=== PATIENT | female | born 1995 | race Caucasian/White ===

== ENCOUNTER → 2017-10-02 12:34 | Outpatient (CLI) | payer OTHER, MEDICAID, SELFPAY ==
[2017-10-02 15:03] LABS: Add Manual Diff / Slide Review NO; Basophils Percent Auto 0.2 % (0-2); Eosinophils Percent Auto 0.3 % (2-4); Hematocrit 39.4 % (36-46); Hemoglobin 13.6 g/dL (12.0-16.0); Lymphocytes Percent Auto 20.6 % (25-40); Mean Corpuscular HGB Conc 34.5 % (30-36); Mean Corpuscular Hemoglobin 30.1 PG (26-34); Mean Corpuscular Volume 87.4 fL (80-100); Monocytes Percent Auto 4.3 % (3-14); Neutrophils Absolute Auto 9400 /uL (3000-5900); Neutrophils Percent Auto 74.6 % (50-75); Platelet Count 271 X10^3/uL (150-400); Red Blood Cell Count 4.51 X10^6/uL (4.0-5.2); Red Cell Distribution Width 14.2 % (11.6-14.8); White Blood Cell Count 12.5 X10^3/uL (4.5-11.0)
[2017-10-02 16:29] LABS: Hepatitis B Surface Antigen NEGATIVE s/c (NEGATIVE); Rubella Antibody IgG 34.1 IU/mL (>15)
[2017-10-02 18:00] LABS: HIV 1 and 2 Antibody NEGATIVE (NEGATIVE); Hep C Virus Ab w/Reflex Quant NEGATIVE s/c (NEGATIVE)
[2017-10-04 14:20] LABS: HSV 2 IGG AB < 0.90 index (< 0.90)
[2017-10-04 14:25] LABS: Varicella IgG Antibody < 135.00 Index (< 135.00)
[2017-10-07 15:18] LABS: Rapid Plasma Reagin NON-REACTIVE
== END ==
PROVIDERS: Visit Provider Family Medicine
DX: Z34.90 Encounter for supervision of normal pregnancy, unspecified, unspecified trimester (principal); Z3A.19 19 weeks gestation of pregnancy
CPT/HCPCS: 36415; 80055; 86695; 86696; 86703; 86787; 86803; 86850; 86900; 86901

== ENCOUNTER → 2017-10-07 12:26 | Outpatient (CLI) | payer OTHER, MEDICAID, SELFPAY ==
--- NOTE | 2017-10-07 12:28 | DI.US.S_ITS ---
PROCEDURE: US OB >= 14 WEEKS FETUS INDICATIONS: >14 WEEKS GESTATION OUTSIDE/PRIOR DATING DATA: Last menstrual period (LMP): 05/20/17. LMP-based estimated date of delivery (TEDDY): 02/24/18. First dating scan (date and location): 10/07/17. Estimated date of delivery (TEDDY) from first dating scan: 02/27/18. TECHNIQUE: Real-time scanning was performed of the fetus, with image documentation and biometric measurements. Endovaginal scanning: None COMPARISON: None. FINDINGS: General: A single living intrauterine gestation is present. Presentation: Breech. Placenta: Placental position is posterior, without previa. Amniotic fluid index: 13.4 cm cm, normal range is 5-24 cm. heart rate: 152 beats per minute. Maternal cervical canal: 5.5 cm long. biometrics: Biparietal diameter: 19 weeks 2 days Head circumference: 19 weeks 2 days Abdominal circumference: 20 weeks 2 days Femur length: 19 weeks 4 days Estimated gestational age from initial scan: not applicable. Composite gestational age from present scan: 19 weeks 4 days Estimated weight and percentile: 370 g; 37 percentile Measurement variability for biometric dating: +/- 7 days from 14 weeks to 15 weeks 6 days gestation, +/- 10 days from 16 weeks to 21 weeks 6 days gestation, +/- 2 weeks from 22 weeks to 27 weeks 6 days gestation, +/- 3 weeks for 28 weeks gestation or later. weight reference: 4500 g or EFW >90/95% is considered macrosomia or large for gestational age. EFW <10% is small for gestational age. EFW 5% or less is considered intra-uterine growth restriction. Anatomic survey: Neuro: Ventricles are non-dilated at less than 10 mm. Cisterna magna is normal at 3-11 mm. Cerebellum is normal in size and morphology. Nuchal skin fold: Normal at less than 6 mm between 14-21 weeks gestational age. Face: Nose and lips, facial profile are normal. Spine: No evidence for spina bifida. Heart: 4-chambered heart is present, with normal ventricular outflow tracts. Diaphragm: Diaphragm is intact. Stomach: Left-sided stomach is present. Kidneys: No hydronephrosis. Normal is less than 5 mm in 2nd trimester, less than 7 mm in 3rd trimester. Cord: 3-vessel cord has orthotopic insertion. Bladder: Normal in size. Extremities: All 4 extremities identified. IMPRESSION: 1. Single living intrauterine at 19 weeks 4 days is compatible with the provided clinical dates. 2. Normal anatomic survey. Dictated by: Yasmany MARLEY Interpreted: Fawad Scott MD on 10/07/2017 at 15:57 Approved by: Fawad Scott M.D. on 10/07/2017 at 17:23
== END ==
PROVIDERS: Visit Provider Family Medicine
DX: Z34.92 Encounter for supervision of normal pregnancy, unspecified, second trimester (principal); Z3A.19 19 weeks gestation of pregnancy
CPT/HCPCS: 76811

== ENCOUNTER → 2017-12-02 10:58 | Outpatient (CLI) | payer OTHER, MEDICAID, SELFPAY ==
[2017-12-02 12:24] LABS: Hematocrit 38.9 % (36-46); Hemoglobin 13.3 g/dL (12.0-16.0)
[2017-12-02 13:51] LABS: GTT (PREG) 1 Hour PP 50gm Dose 59 mg/dL (76-139)
== END ==
PROVIDERS: Visit Provider Family Medicine
DX: Z3A.28 28 weeks gestation of pregnancy (principal)
CPT/HCPCS: 36415; 82950; 85014; 85018

== ENCOUNTER → 2018-01-27 11:16 | Outpatient (CLI) | payer OTHER, MEDICAID, SELFPAY ==
[2018-01-28 08:41] LABS: Strep Grp B PCR POS for Grp B Strep
== END ==
PROVIDERS: PCP Family Medicine; Visit Provider Family Medicine
DX: Z34.83 Encounter for supervision of other normal pregnancy, third trimester (principal); Z3A.35 35 weeks gestation of pregnancy
CPT/HCPCS: 87653

== ENCOUNTER 2018-03-03 17:45 | Inpatient (IN) | payer OTHER, MEDICAID, SELFPAY ==
[2018-03-03 20:30] VITALS: BP 126/71
[2018-03-03 20:56] LABS: Add Manual Diff / Slide Review NO; Basophils Percent Auto 0.6 % (0-2); Eosinophils Percent Auto 0.7 % (2-4); Lymphocytes Percent Auto 26.3 % (25-40); Mean Corpuscular HGB Conc 34.1 % (30-36); Mean Corpuscular Hemoglobin 30.2 PG (26-34); Mean Corpuscular Volume 88.7 fL (80-100); Monocytes Percent Auto 8.8 % (3-14); Neutrophils Absolute Auto 7300 /uL (3000-5900); Neutrophils Percent Auto 63.6 % (50-75); Platelet Count 239 X10^3/uL (150-400); Red Blood Cell Count 4.62 X10^6/uL (4.0-5.2); Red Cell Distribution Width 13.9 % (11.6-14.8); White Blood Cell Count 11.6 X10^3/uL (4.5-11.0)
[2018-03-04] MEDS: LACTATED RINGERS 1,000 ML 100 ML IV (05:51)
[2018-03-04] MEDS: OXYTOCIN PREMIX 30 UNIT/500 ML PLAST..BAG IV (06:00)
[2018-03-04] MEDS: PENICILLIN G POTASSIUM 5,000,000 UNIT in DEXTROSE 5% IN WATER 250 ML IV (07:40)
--- NOTE | 2018-03-04 08:08 | PM.OBHP.1 ---
OB HPI Date/Time Date of admission: 03/03/18 Date Patient Seen: 03/04/18 Time Patient Seen: 07:30 History of Present Condition Chief complaint: : 2 Para: 1 Estimated Date of Delivery: 02/24/18 Estimated Gestational Age (weeks): 41w1d Narrative: Rani Montenegro is a 22 year old female, . She came in for postdates induction with cervical ripening last night however was found to be ella on her own and 4.5 cm. Indications Indication for induction OB: post dates History of Present care: good care, initiated at week # (19), number of visits (9) and pounds weight gain (54) Dating criteria: LMP confirmed by 2nd trimester US Ultrasounds: normal mid trimester US Obstetrical complications: none Medical complications: none Preadmission Labs Blood type: AB (+) positive -: Antibody screen: negative, GBS status: positive, HBsAG: negative, HIV: negative, HSV 1: positive, HSV 2: negative and RPR/VDLR: negative -: Chlamydia screen: not detected and Gonorrhea screen: not detected -: Rubella: immune and Varicella: not immune HCT: 39.4 HCAB: negative PAP: Normal 1 hr GTT: 59 Prior (ies) History: 2016 at 41 weeks, 8 lbs 4 oz male, epidural Evaluation Evaluation Baseline heart rate: 130 Variability: Moderate (11-25) monitor accelerations: Absent monitor decelerations: Variable Contraction Frequency (minutes): 3 Uterine Contraction Intensity: Moderate Category of Tracing: II Cervical dilation (cm): 5 Cervical effacement (%): 80 station: -2 Laboratory results: Laboratory Tests 03/03/18 03/03/18 20:50 20:50 WBC 11.6 H RBC 4.62 Hgb 14.0 Hct 41.0 MCV 88.7 MCH 30.2 MCHC 34.1 RDW 13.9 Plt Count 239 Neut % (Auto) 63.6 Lymph % (Auto) 26.3 [place] % (Auto) 8.8 Eos % (Auto) 0.7 L Baso % (Auto) 0.6 Neut # (Auto) 7300 H Blood Type AB Positive Antibody Screen Negative PFSH Surgical History S/P wisdom tooth extraction (Acute) Social History marital status: unmarried,living together Smoking Status: Never smoker alcohol intake: former (rare) substance use type: does not use Meds Home Medications Medication Instructions Recorded Confirmed Type VIT#96/FERROUS FUM/FA #0 11/16/15 History ( Vitamin) Allergies Allergy/AdvReac Type Severity Reaction Status Date / Time No Known Drug Allergies Allergy Unknown Unverified 03/03/18 20:33 [NO KNOWN DRUG ALLERGIES] Review of Systems Review of Systems All systems reviewed & are unremarkable except as noted in HPI and below Exam Const General: cooperative and healthy appearing HENMT Head: normal to inspection Ears: hearing grossly normal bilaterally Nose: external nose normal Face and sinus: normal facial exam Mouth: oral mucosae normal Teeth and gingiva: dentition normal Eyes General: appearance normal, both eyes and all related structures Neck Neck: normal visual inspection Resp Effort & Inspection: normal respiratory effort Auscultation: clear to auscultation bilaterally Cardio Rate: regular rate Rhythm: regular rhythm Heart Sounds: no murmurs External Female Exam: external appearance normal Manual OB Exam: dilated Presentation: vertex Neuro General: alert, awake and oriented x3 Extrem General: normal to inspection and no pedal edema Objective Labs Result Diagrams: 03/03/18 20:50 Labs: Laboratory Results - last 24 hr 03/03/18 03/03/18 20:50 20:50 WBC 11.6 H RBC 4.62 Hgb 14.0 Hct 41.0 MCV 88.7 MCH 30.2 MCHC 34.1 RDW 13.9 Plt Count 239 Neut % (Auto) 63.6 Lymph % (Auto) 26.3 [place] % (Auto) 8.8 Eos % (Auto) 0.7 L Baso % (Auto) 0.6 Neut # (Auto) 7300 H Blood Type AB Positive Antibody Screen Negative Assessment and Plan (1) 41 weeks gestation of : Current visit: Yes Status: Acute 22 year old at 41+1 weeks, GBS positive. Pitocin started this morning. Plan - Continue pitocin, AROM after adequate antibiotics - GBS prophylaxis - Expectant management, anticipate (2) Positive GBS test: Current visit: Yes Status: Acute
[2018-03-04] MEDS: PENICILLIN G POTASSIUM 3,000,000 UNIT/50 ML FROZ.PIGGY 100 UNIT IV (11:35)
--- NOTE | 2018-03-04 14:53 | PM.OBPRVD ---
Delivery date: 03/04/18 Induction method: per pitocin protocol Delivery augmentation: rupture of membranes Delivery monitor: external FHT Route of delivery: Laceration description: None Estimated blood loss (mL): 100 Anesthesia type: None Narrative: VAGINAL DELIVERY NOTE BRIEF HISTORY: Patient is a 22-year-old G2-now-P2 status post spontaneous vaginal delivery at 41+1 weeks gestation on 03/04/18. TEDDY: 02/24/18 Hospital problems: 41 weeks of GBS positive STAGE I: Labor Indications for Induction: Postdates Labor onset 03/04/18 at 6:00 a.m.. Induction agents: Pitocin Augmentation: AROM with clear fluid at 12:37 p.m. Complete: 14:30 Stage I duration: 8 hours and 30 minutes Analgesia for labor: None. Comments: heart tones were category 2 throughout due to intermittent variable decelerations. STAGE II: Delivery The second stage of labor lasted 6 minutes. Spontaneous vaginal delivery occurred at 2:36 p.m. on 03/04/18. Infant was vertex and CARLO with a tight nuchal cord which was reduced. Apgars were 9 and 9. was placed on mother's chest. Cord was clamped and cut after 1 minute delay. STAGE III: Placenta/Cord The third stage of labor lasted 4 minutes. Placenta delivered after active management and appeared intact with a three-vessel cord. There were no perineal or vaginal lacerations. Hemostasis achieved. Fundus was firm at umbilicus. Pitocin bolus given after delivery of placenta. EBL: 100 mL. Needle and sponge counts were correct. The vagina was inspected and no items were left in situ.
[2018-03-04] MEDS: LANOLIN OINT 7 GM 1 APPLIC TOP (19:26)
[2018-03-04] MEDS: IBUPROFEN 600 MG TABLET PO (19:45)
[2018-03-05] MEDS: IBUPROFEN 600 MG TABLET PO (08:24)
--- NOTE | 2018-03-05 13:29 | P.DS_ITS ---
Discharge Providers Date of admission: 03/03/18 17:45 Primary care physician: Kush Raphael MD Consults: 03/04/18 15:53 Consult to Manager Billing Routine Comment: Discharge provider: Florinda Pineda DO Discharge Date: 03/05/18 Summary Date Patient Seen: 03/05/18 Time Patient Seen: 08:25 Hospital Course: Patient is a 22-year-old G2 now P2 1 day after uncomplicated vaginal delivery on 03/04/18 at 2:36 p.m.. She was brought in for induction due to post dates. Patient was GBS positive and received adequate GBS prophylaxis prior to delivery. course has been uncomplicated. Bleeding is moderate. Pain is well controlled. is going well. No issues with . Patient is ambulating, voiding, stooling without difficulty. Counseled patient to call for fevers, severe pain or bleeding through more than a pad an hour. She declined any prescription medications on discharge. Follow- up for 6 check. Exam Temperature 98.7? blood pressure 117/76 General: Awake and alert, no acute distress. HEENT: NCAT, EOMI, moist oral mucosa CV: Regular rate and rhythm, no murmurs, rubs or gallops Lungs: CTAB, no wheezes, rales, or rhonchi Abdomen: Soft, nontender; bowel tones active; uterus firm 1 cm below umbilicus Extremities: Warm, no edema, 2+ pedal pulses bilaterally Peripartum Data Infant Delivery Method: Natural Vaginal Laceration description: None complications: none Discharge Diagnosis (1) 41 weeks gestation of : Status: Acute (2) Positive GBS test: Status: Acute (3) Spontaneous vaginal delivery: Status: Acute Status at Discharge Functional status at discharge: independent ambulation Overall status at discharge: patient is back to baseline Time Spent with Patient Total time spent providing and/or coordinating discharge services: Less than 30 minutes Objective Labs Result Diagrams: 03/03/18 20:50 Discharge Plan Discharge Plan Patient Disposition: Home Discharge Med Rec/Prescriptions Prescriptions: Continue VIT#96/FERROUS FUM/FA ( Vitamin) 1 tab PO DAILY Qty: 0 RF: 0 Follow up/Referrals: Florinda Pineda DO [Physician] - 6 Weeks Discharge Data Primary Care Provider: Kush Raphael Attending Provider: Florinda Pineda Admit Date/Time: 03/03/18 17:45
[2018-03-05 13:44] VITALS: BP 113/70; PULSE 90; RESP 14; TEMP 37.3
== END 2018-03-05 15:05 | disposition home or self-care (01) | DRG 560 ==
PROVIDERS: Admitting Provider Family Medicine; PCP Family Medicine; Visit Provider Family Medicine
DX: O48.0 Post-term pregnancy (principal); O99.824 Streptococcus B carrier state complicating childbirth; Z3A.41 41 weeks gestation of pregnancy; Z37.0 Single live birth; O69.81X0 Labor and delivery complicated by cord around neck, without compression, not applicable or unspecified
CPT/HCPCS: 59050; 59409; 85025; 86850; 86900; 86901; G0379; J2540; J2590